=== PATIENT | female | born 1945 | race Caucasian/White ===

== ENCOUNTER → 2023-08-25 09:19 | Outpatient (BNVA) | payer MEDICARE, OTHER, SELFPAY | PROVIDERS: Family Provider Family Medicine; PCP Family Medicine; Visit Provider Emergency Medicine | DX: R39.9 Unspecified symptoms and signs involving the genitourinary system (principal); N39.0 Urinary tract infection, site not specified; N30.00 Acute cystitis without hematuria | CPT/HCPCS: 81000; 87086 ==